=== PATIENT | female | born 1960 | race Asian ===

== ENCOUNTER 2017-07-17 10:14 | Inpatient (IN) | payer OTHER ==
[2017-07-17 11:14] LABS: ADD MAN DIFF? NO
[2017-07-17 11:22] LABS: BASOPHILS % 0.6 % (0.0-2.0); EOSINOPHILS # 0.1 10^3/ul (0.0-0.5); HEMATOCRIT 40.1 % (37.0-47.0); HEMOGLOBIN 13.9 g/dl (12.0-16.0); LYMPHOCYTES # 1.8 10^3/ul (0.8-2.9); LYMPHOCYTES % 38.1 % (15.0-51.0); MEAN CORPUSCULAR HEMOGLOBIN 30.5 pg (29.0-33.0); MEAN CORPUSCULAR HGB CONC 34.7 g/dl (32.0-37.0); MEAN CORPUSCULAR VOLUME 88.1 fl (82.0-101.0); MEAN PLATELET VOLUME 9.5 fl (7.4-10.4); MONOCYTE # 0.4 10^3/ul (0.3-0.9); MONOCYTES % 7.5 % (0.0-11.0); NEUTROPHIL # 2.5 10^3/ul (1.6-7.5); NEUTROPHILS % 52.6 % (39.0-77.0); PLATELET COUNT 242 10^3/UL (140-415); RED BLOOD COUNT 4.55 10^6/ul (4.20-5.40); RED CELL DISTRIBUTION WIDTH 12.7 % (11.5-14.5)
[2017-07-17 11:22] LABS: WHITE BLOOD COUNT 4.8 10^3/ul (4.8-10.8)
[2017-07-17 11:45] LABS: ANION GAP 19 (8-16); BLOOD UREA NITROGEN 14 mg/dl (7-20); CALCIUM 10.5 mg/dl (8.4-10.2); CARBON DIOXIDE 28 mmol/L (21-31); CHLORIDE 103 mmol/L (97-110); CREATININE 0.57 mg/dl (0.44-1.00); GLUCOSE 101 mg/dl (70-220); SODIUM 146 mmol/L (135-144)
[2017-07-17 12:07] LABS: TROPONIN-I < 0.012 ng/ml (0.00-0.12)
[2017-07-17] MEDS: METOCLOPRAMIDE 10 MG INJ IV (12:23)
[2017-07-17] MEDS: hydrALAzine 20 MG INJ IV (13:38)
[2017-07-17] MEDS ORDERED: ACETAMINOPHEN 325 MG TAB PO (14:00)
[2017-07-17] MEDS ORDERED: ONDANSETRON 4 MG INJ IV ×2 (14:00→14:30)
[2017-07-17] MEDS ORDERED: HYDROCODONE/APAP (5/325) TAB PO (14:30)
[2017-07-17] MEDS ORDERED: MECLIZINE 12.5 MG TAB PO (14:30)
[2017-07-17] MEDS ORDERED: GLUCOSE GEL 15 GRAM TUBE BUCCAL (17:00)
[2017-07-17] MEDS ORDERED: GLUCOSE GEL 15 GRAM TUBE PO ×2 (17:00)
[2017-07-17] MEDS ORDERED: DEXTROSE 50% 50 ML SYRINGE IV ×2 (17:00)
[2017-07-17] MEDS ORDERED: GLUCAGON 1 MG INJ IM (17:00)
[2017-07-17] MEDS: INSULIN ASPART [NOVOLOG] 3 ML PEN SC ×2 (17:20→22:43)
[2017-07-17] MEDS: FLECAINIDE 50 MG TAB PO (18:04)
[2017-07-17] MEDS: METOPROLOL 50 MG TAB PO (20:36)
[2017-07-17] MEDS: APIXABAN 5 MG TABLET PO (20:36)
[2017-07-17] MEDS: LOSARTAN 50 MG TAB PO (20:36)
[2017-07-18] MEDS: ACCU-CHEK XX (02:00)
[2017-07-18] MEDS: INSULIN ASPART [NOVOLOG] 3 ML PEN SC ×4 (07:55→17:55)
[2017-07-18] MEDS: APIXABAN 5 MG TABLET PO (08:29)
[2017-07-18] MEDS: LOSARTAN 50 MG TAB PO (08:29)
[2017-07-18] MEDS: METOPROLOL 50 MG TAB PO (08:29)
[2017-07-18] MEDS: FLECAINIDE 50 MG TAB PO (08:30)
== END 2017-07-18 18:30 | disposition home or self-care (01) | DRG 149 ==
LOC: E/R 10:14 → TEL 13:47
DX: R42 Dizziness and giddiness (principal); I10 Essential (primary) hypertension; E11.9 Type 2 diabetes mellitus without complications; I48.91 Unspecified atrial fibrillation
CPT/HCPCS: 36415; 70450; 70551; 71045; 80048; 82962; 84484; 85025; 93005; 93306; 93880; 96374; 96375; 99291-25